=== PATIENT | female | born 1950 | race Caucasian/White ===

== ENCOUNTER → 2024-06-21 | Outpatient (CLI) | payer MEDICARE ==
[~2024-06-21] MED LIST: AMLO-257 PO; FLUO-418 PO; HYDR-2132 PO; IBUP-2077 PO; LOVA40TA2 PO
--- NOTE | 2024-06-21 17:02 | HMCIMG ---
MR SHOULDER LEFT WO HISTORY: Pain COMPARISON: None TECHNIQUE: MRI of the left shoulder was performed utilizing multiple pulse sequences in axial, coronal and sagittal planes. Patient was not given contrast through intravenous route. FINDINGS: No abnormal signal intensity is seen of the visualized bony structure. Hypertrophic degenerative changes are seen of the acromioclavicular joint. There is downward sloping of acromion in a medial to lateral direction encroaching upon the rotator cuff tendon and muscles. There is rotator cuff tendinosis with partial undersurface tear. The glenoid labrum is intact. Bicipital tendon is seen within its groove. No fluid is seen in the subacromial-subdeltoid bursa complex. No appreciable amount of joint effusion is seen. IMPRESSION: 1. DJD. Rotator cuff tendinosis with partial undersurface tear. No fluid is seen in the subacromial-subdeltoid bursa complex.
== END | disposition home or self-care (01) ==
LOC: RAH 14:59
PROVIDERS: ATTEND Orthopaedic Surgery
DX: M75.112 Incomplete rotator cuff tear or rupture of left shoulder, not specified as traumatic (principal); M19.012 Primary osteoarthritis, left shoulder; M67.814 Other specified disorders of tendon, left shoulder; M25.512 Pain in left shoulder
CPT/HCPCS: 73221